=== PATIENT | female | born 1940 | race Caucasian/White ===

== ENCOUNTER → 2019-01-21 | Outpatient (CLI) | payer MEDICARE ==
[2019-01-21 14:56] LABS: HCT 41.5 % (34.0-46.0); MCH 27.9 pg (25.0-35.0); MCHC 31.3 g/dL (31.0-37.0); MCV 89.1 fL (80.0-100.0); Platelet Count 398 k/uL (150-450); RBC 4.66 m/uL (3.80-5.40); WBC 7.6 k/uL (3.8-10.6)
[2019-01-21 15:02] LABS: Appearance,Urine Clear (Clear); Bilirubin,Urine Negative (Negative); Blood,Urine Trace (Negative); Color,Urine Light Yellow; Glucose,Urine (UA) Negative (Negative); Ketones,Urine Negative (Negative); Leukocyte Esterase,Urine Large (Negative); Mucus,Urine Rare /hpf; Nitrite,Urine Negative (Negative); PH, Urine 6.5 (5.0-8.0); Protein,Urine Negative (Negative); RBC,Urine 3 /hpf (0-5); Specific Gravity,Urine 1.007 (1.001-1.035); Squamous Epithelial Cell,Urine 2 /hpf (0-4); Urobilinogen,Urine <2.0 mg/dL (<2.0); WBC,Urine 10 /hpf (0-5)
[2019-01-21 15:08] LABS: INR 0.9 (<1.2); Partial Thromboplastin Time 22.3 sec (22.0-30.0); Prothrombin Time 9.5 sec (9.0-12.0)
[2019-01-21 15:11] LABS: ALT 29 U/L (9-52); AST 27 U/L (14-36); Albumin 3.9 g/dL (3.5-5.0); Alkaline Phosphatase 82 U/L (38-126); Anion Gap 8 mmol/L; Blood Urea Nitrogen 18 mg/dL (7-17); Calcium 9.9 mg/dL (8.4-10.2); Carbon Dioxide 29 mmol/L (22-30); Chloride 102 mmol/L (98-107); Glucose 82 mg/dL (74-99); Magnesium 1.7 mg/dL (1.6-2.3); Sodium 139 mmol/L (137-145); Total Bilirubin 0.5 mg/dL (0.2-1.3); Total Protein 6.4 g/dL (6.3-8.2)
== END | disposition home or self-care (01) ==
LOC: LABPAT 13:58
PROVIDERS: ATTEND Orthopaedic Surgery Sports Medicine
DX: Z01.812 Encounter for preprocedural laboratory examination (principal); Z79.01 Long term (current) use of anticoagulants
CPT/HCPCS: 80053; 81001; 83735; 85027; 85610; 85730; 87070

== ENCOUNTER 2019-02-17 11:58 | Inpatient (IN) | payer MEDICARE ==
[2019-02-08 09:58] VITALS: BMI 25.2
[~2019-02-17 11:58] MED LIST: ACETAMINOPHEN TAB 500 MG TAB PO ONE; DEXAMETHASONE SOD PHOSPHATE 10 MG/ML 1 ML VIAL IV ONE; HYDROmorphone 0.5 MG/0.5 ML SYRINGE IVP PRN; LIDOCAINE 1% 20 ML VIAL (10MG/ML) FOR IV START INTRADERMA PRN; MELOXICAM 7.5 MG TAB PO ONE; ONDANSETRON 4 MG/2 ML VIAL IVP ONE; ROPIVACAINE 246.25 MG, EPINEPHrine 0.5 MG, KETOROLAC 30 MG, cloNIDine HCL/PF 80 MCG, WA... MISCELLANE ONE; SCOPOLAMINE 1.5MG/72HR PATCH TRANSDERM ONE; TRANEXAMIC ACID 1,000 MG in SODIUM CHLORIDE 0.9% 100 ML IVPB ONE; ceFAZolin IN SWFI 2 GM/20 ML SYRINGE IVP ONE
[2019-02-17] MEDS: LACTATED RINGERS 1,000 ML IV SCH ×2 (13:05→15:45)
[2019-02-17] MEDS ORDERED: BISACODYL 10 MG SUPP RECTAL PRN (14:36)
[2019-02-17] MEDS ORDERED: ACETAMINOPHEN TAB 325 MG TAB PO PRN (14:36)
[2019-02-17] MEDS ORDERED: HYDROcodone/APAP 5-325MG 1 EACH TAB PO PRN (14:36)
[2019-02-17] MEDS ORDERED: HYDROcodone/APAP 7.5-325MG 1 EACH TAB PO PRN (14:36)
[2019-02-17] MEDS ORDERED: NA PHOS,M-B/NA PHOS,DI-BA 133 ML ENEMA RECTAL PRN (14:36)
[2019-02-17] MEDS ORDERED: MAGNESIUM HYDROXIDE 2,400 MG/10 ML CUP PO PRN (14:36)
[2019-02-17] MEDS ORDERED: NALOXONE 0.4 MG/ML 1 ML VIAL IV PRN (14:36)
[2019-02-17] MEDS ORDERED: HYDROcodone/APAP 10-325MG 1 EACH TAB PO PRN (14:36)
[2019-02-17] MEDS ORDERED: HYDROmorphone 0.5 MG/0.5 ML SYRINGE IVP PRN ×3 (14:36)
[2019-02-17] MEDS ORDERED: TEMAZEPAM 15 MG CAP PO PRN (14:36)
[2019-02-17] MEDS ORDERED: traMADol 50 MG TAB PO PRN (14:36)
[2019-02-17] MEDS ORDERED: ONDANSETRON 4 MG/2 ML VIAL IVP PRN (14:36)
[2019-02-17] MEDS ORDERED: SODIUM CHLORIDE 0.9% 100 ML BAG ONE (14:59)
[2019-02-17] MEDS ORDERED: TRANEXAMIC ACID 1,000 MG/10 ML VIAL ONE (14:59)
[2019-02-17] MEDS ORDERED: PROPOFOL 10 MG/ML 20 ML VIAL IV ONE (14:59)
[2019-02-17] MEDS ORDERED: fentaNYL (PF) 50 MCG/ML 2 ML AMP ONE (14:59)
[2019-02-17] MEDS ORDERED: MIDAZOLAM 2 MG/2 ML VIAL ONE (14:59)
[2019-02-17] MEDS ORDERED: MORPHINE SULFATE (PF) 0.3 MG/0.3 ML SYR ONE (14:59)
--- NOTE | 2019-02-17 17:23 | XR ---
PROCEDURE: XR knee limited LT - 2V DATE AND TIME: 02/17/2019 5:13 PM CLINICAL INDICATION: PHH; Evaluation for Postop abnormality and alignment TECHNIQUE: AP and crosstable lateral COMPARISON: None FINDINGS: The TKR is in anatomic positioning and alignment. Postprocedural changes noted, but no unex pected findings. IMPRESSION: Postoperative 2 views
--- NOTE | 2019-02-17 19:34 | OP ---
OPERATIVE REPORT DATE OF PROCEDURE: 02/17/2019. SURGEON: Surjit Lobato M.D. SAW SHARPENER: Blair VARGAS. PREOPERATIVE DIAGNOSIS: Left knee osteoarthrosis. POSTOPERATIVE DIAGNOSIS: Left knee osteoarthrosis. OPERATION PERFORMED: Left total knee arthroplasty. ANESTHESIA: Spinal with sedation. ESTIMATED BLOOD LOSS: 100 mL. TOURNIQUET TIME: 46 minutes at 250 mmHg. COMPLICATIONS: None apparent. DRAINS: None. DISPOSITION: Postanesthesia care unit preop. INDICATIONS: Whit is a 78-year-old female with longstanding history of left knee pain. History and physical examination are consist with advanced left knee osteoarthrosis. She has been through significant nonoperative management up to this point. Further treatment options were discussed and she decided to go forward with left total knee arthroplasty. The risks of procedure were discussed with her in detail. These risks include, but are not limited to risk of infection, nerve damage, bleeding, pain, and a small risk of deep vein thrombosis which could lead to fatal pulmonary emboli. There is also risk of loosening of the implant which could require revision operation. The patient understands these risks. All of her questions were answered to her satisfaction. Appropriate informed consent was obtained. DESCRIPTION OF PROCEDURE: The patient identified in preoperative holding area. Surgical site was marked by both the patient and myself. She was given 2 g of Ancef IV for prophylactic purposes. She was then transferred to the operative suite. She was placed supine on the operative table. Spinal anesthetic was then administered and dosed per the anesthesia without apparent complication. Examination under anesthesia was then performed. The patient has 2-3 degrees shy of full extension. She had 100 degrees of flexion. The medial collateral ligament, lateral collateral ligament and posterior cruciate ligaments were stable. Tourniquet was then placed high on the left upper thigh well-padded in preparation for surgery. The patient's left lower extremity was then prepped and draped in usual sterile fashion. Standard surgical pause undertaken to ensure that we were operating on the correct site and that appropriate preop antibiotics were given. All staff in room were in agreement and we proceeded. The outlines of the patella were then marked with a surgical pen. A planned 10-12 cm vertical incision centered over the patella was marked with a surgical pen. The leg was then exsanguinated with an Esmarch dressing. The knee was then flexed and tourniquet was inflated to 250 mmHg. The total tourniquet time for the procedure was 46 minutes. Incision was then made with a 10 blade scalpel. Dissection carried down sharply overlying fascia. Great care was taken to minimize the skin flaps. The knee was then exposed using a standard medial parapatellar approach. A small cuff of quadriceps tendon was then left for suturing. She was in a bit of varus preoperatively. A standard medial release was then made. Superficial medial collateral ligament was dissected off the bone around the posterior aspect of the proximal tibia. The medial meniscus was then excised as well. The lateral meniscus was also released anteriorly. The leg was then externally rotated. The patella was everted. The knee was flexed. The retractors then placed to protect the collateral ligaments. I then proceeded to remove the infrapatellar fat pad. This was excised sharply tangentially with fibers of the patellar tendon. I then proceeded to remove peripheral osteophytes. This was done with a rongeur. I then proceeded with the distal femoral resection. She did have near full extension. A planned 9 mm resection was then done. The femoral canal was then entered in the midline of the femur approximately 10 mm anterior to the origin of the posterior cruciate ligament. The carlos was then advanced down the center of the femur and placed intramedullary. Based on the preoperative radiographs, the angle between the anatomic and mechanical axis of the femur was approximately 4-5 degrees. The valgus angle of the distal femoral cutting guide was then set at 4 degrees for the left knee. The distal femoral cutting guide was then advanced over the intramedullary carlos. This was seated firmly against the femur. I then as mentioned planned to take 9 mm off the distal femur. The cutting block was then secured onto the femur with pins. The jig was then removed. The distal femoral cut was made through the slot of the block. The pins were then removed. The distal femoral cutting block was removed. The accuracy of the distal femoral cuts was checked with 2 flat bars. I then proceeded with femoral sizing. Posterior referencing sizing guide was held firmly against the resected distal surface of the femur. The posterior condyles were resting on the posterior plane of the guide. The sizing size was then placed onto the anterior femur. The size measured as a size 7 narrow. I then assessed for femoral rotation. The plan was for 3 degrees of external rotation. Three degrees of external rotation was placed onto the jig. These holes were then marked. I then confirmed the rotation by 3 separate methods. This was done using epicondylar axis as well as Whitesides line and posterior referencing. It was deemed that the external rotation was proper. I then went forward with placing the femoral cutting block. This was placed over the previously placed pin holes. The Jaiden wing was then placed on the anterior slots to ensure that we would not notch the anterior femur with the anterior femoral cut. I then proceed with the anterior femoral cut. This was flush with the anterior cortex of the femur. The posterior cuts were then made followed by the anterior chamfer cut, then the posterior chamfer cut. The cutting block was then removed. Throughout the resection, the collateral ligaments were protected with retractors. I then placed a trial size 7 femur. It was slightly wide mediolateral with narrow was fit very nicely. It fit flush with the distal end of the femur. The drill holes were then made. I then proceed with a tibial cut. I planned for cruciate retaining knee. The guide was set, was placed and set for varus valgus and for slope. The height was set for approximate 2 mm resection from the medial tibial plateau which was the lower side. I was happy with the alignment and the amount of resection. The cutting block was then pinned to the proximal tibia. The alignment carlos was removed. The proximal tibia was resected with a reciprocating saw. Again this was done with retractors protecting the collateral ligaments as well as the posterior cruciate ligament. I then proceeded to evaluate the flexion extension gaps. A 10 mm block was then placed. The flexion-extension gaps were equal. I then proceed with the resection of posterior osteophytes. Very minimal posterior osteophytes. This was done using a curved osteotome. This resected the posterior osteophytes and posterior capsule stripping was also done off the posterior aspect of the femur at this time. The osteophytes were then removed. I then proceed to resection of patella. The thickness of patella was measured using the caliper. The thickness was 22 mm. The thickness of the anticipated patellar dome was taken into account. Resection was then performed and confirmed to be equal in 4 quadrants using a caliper. Approximately 14 mm of bone remained after resection. 29 x 8 mm standard patellar trial was then placed. The holes were drilled. The trial was then placed. I then proceeded sizing the tibial plate for size E tibial plate fit very nicely. I then placed the trial femur, the tibial tray and patellar button. A 10 mm trial tibial insert was also placed. The components fit very nicely. She had full extension and flexion. The extension and flexion gaps were equal and stable to both varus and valgus stress. The patella tracked appropriately. The tibial tray rotation was marked with a Bovie. This was externally rotated properly. I then proceeded with tibial preparation. First drilled the femoral holes, removed femoral component. The tibial tray was then set for proper external rotation as well as mediolateral placement onto the tibia. It was then pinned into place. I then proceeded with punching the keel. I then decided to proceed with cementing of all of our components. The knee was thoroughly irrigated with sterile saline solution via pulse lavage. The lateral geniculate artery was identified and cauterized. All blood was removed from the bone of the tibia femur and patella with pulse lavage. I then proceeded with cementing. Two packs of antibiotic bone cement were prepared on the back table by the surgical scheduler. I then proceed with cementing the tibia first. Cement was impacted into the keel as well as deeply seated in the bone. A second coat of cement was then placed. The tibia was then impacted into place. Excess cement was removed with Deuce's and Joker's. I then proceed with cementing the femoral component. The femoral component was also cemented using standard technique. Excess cement was removed. A 10 mm trial insert was then placed into the knee. It was brought into full extension with a constant axial load placed until the cement had hardened. The patellar component was then cemented. This was held firmly with a compressive device until the cement had dried. When the cement had dried, the knee was taken out of extension. All excess cement was removed from around the prosthesis. I then trialed the knee with a 10 mm insert. Flexion extension gaps were appropriate. The knee was stable. It came into full extension. I decided to go forward with the 10 mm cross-linked cruciate-retaining tibial insert. Polyethylene was then placed on the tibial tray and locked into place. The knee was then reduced. The knee was again further irrigated with sterile saline solution with antibiotic added. The tourniquet was then deflated. Total tourniquet time for the procedure was 46 minutes at 250 mmHg. Final components were Juli Persona size 7 narrow cruciate-retaining femoral component, size E tibial tray, a 10 mm medial congruent cruciate-retaining polyethylene insert and a 29 x 8 mm patella. I then proceeded with closure. Again, the knee was thoroughly irrigated. The quadriceps tendon and the medial retinaculum were reapproximated with #2 Ethibond suture. The extensor mechanism was then closed with a running #2 Quill suture. Subcutaneous tissues were then closed with 2-0 Vicryl interrupted suture. The skin was closed with a running 3-0 Quill suture. Dermabond was applied to the incision. Sterile compressive dressings were applied. All sponge and needle counts were deemed correct prior to closure. The patient tolerated procedure without apparent complication. She was transferred to recovery room in stable condition. MMODL / IJN: [id number] /
[2019-02-17] MEDS ORDERED: SENNOSIDES-DOCUSATE SODIUM 1 EACH TAB PO SCH (21:00)
[2019-02-17] MEDS ORDERED: MELATONIN 5 MG TABLET PO PRN (21:22)
[2019-02-17] MEDS ORDERED: FLUoxetine HCL 20 MG CAP PO SCH (21:30)
[2019-02-17] MEDS: ASPIRIN 325 MG TAB PO SCH (21:59)
[2019-02-17] MEDS: ceFAZolin IN SWFI 2 GM/20 ML SYRINGE IVP SCH (23:41)
[2019-02-18] MEDS: LACTATED RINGERS 1,000 ML IV SCH ×2 (05:43→07:09)
[2019-02-18 06:13] LABS: Basophils % (A) 0 %; Eosinophils % (A) 0 %; HCT 36.6 % (34.0-46.0); HGB 11.7 gm/dL (11.4-16.0); Lymphocytes # (A) 1.4 k/uL (1.0-4.8); Lymphocytes % (A) 12 %; MCH 28.7 pg (25.0-35.0); MCHC 31.9 g/dL (31.0-37.0); MCV 89.9 fL (80.0-100.0); Mean Platelet Volume 6.4; Monocytes # (A) 0.5 k/uL (0-1.0); Monocytes % (A) 4 %; Neutrophils # (A) 9.5 k/uL (1.3-7.7); Neutrophils % (A) 83 %; Platelet Count 418 k/uL (150-450); RBC 4.07 m/uL (3.80-5.40); RDW 13.9 % (11.5-15.5); WBC 11.5 k/uL (3.8-10.6)
[2019-02-18 08:01] VITALS: TEMP 98.4
[2019-02-18] MEDS: ceFAZolin IN SWFI 2 GM/20 ML SYRINGE IVP SCH (08:35)
[2019-02-18] MEDS: ASPIRIN 325 MG TAB PO SCH (08:36)
[2019-02-18] MEDS ORDERED: EZETIMIBE 10 MG TAB PO SCH (09:00)
[2019-02-18] MEDS ORDERED: buPROPion XL 150 MG TAB.ER.24H PO SCH (09:00)
[2019-02-18] MEDS ORDERED: amLODIPine 5 MG TAB PO SCH (09:00)
[2019-02-18] MEDS ORDERED: SPIRONOLACTONE 25 MG TAB PO SCH (09:00)
[2019-02-18 09:15] LABS: Albumin 3.6 g/dL (3.5-5.0); Calcium 9.2 mg/dL (8.4-10.2); Potassium 5.1 mmol/L (3.5-5.1); Total Bilirubin 0.4 mg/dL (0.2-1.3); Total Protein 5.8 g/dL (6.3-8.2)
[2019-02-18 10:45] LABS: Appearance,Urine Clear (Clear); Bilirubin,Urine Negative (Negative); Blood,Urine Negative (Negative); Color,Urine Colorless; Glucose,Urine (UA) Negative (Negative); Ketones,Urine Negative (Negative); Leukocyte Esterase,Urine Negative (Negative); Nitrite,Urine Negative (Negative); PH, Urine 5.5 (5.0-8.0); Protein,Urine Negative (Negative); Specific Gravity,Urine 1.005 (1.001-1.035); Urobilinogen,Urine <2.0 mg/dL (<2.0)
--- NOTE | 2019-02-18 11:58 | P.DS ---
Providers Date of admission: 02/17/19 12:24 Expected date of discharge: 02/18/19 Attending physician: Surjit Lobato Consults: 02/17/19 14:36 Consult Physician Routine Consulting Provider: Aura Gramajo Consult Reason/Comments: post op medical management Do you want consulting provider notified?: Yes Primary care physician: Myrna Weber - Discharge Diagnosis(es) (1) Status post total knee replacement Patient was admitted to the OR on 02/17/2019 to undergo a left total knee arthroplasty. She had failed conservative measures as an outpatient and desired to proceed with elective surgery after given informed consent. She underwent the above procedure which she tolerated well without complication. Postoperative hospital course has remained without complication. On day of discharge she is afebrile, vital signs stable, labs within acceptable ranges, tolerating by mouth meds and diet, voiding without difficulty, positive flatus, denies abdominal pain or calf pain, pain is controlled on oral pain medication and has no new complaints. Wound is benign, neurovascular status is intact, calf is soft and nontender, abdomen soft and nontender. Review of systems is negative for numbness, tingling, fever, chills, chest pain, shortness breath, nausea, vomiting, dizziness, headaches, slurred speech or other Current Visit: Yes Status: Acute (2) Osteoarthritis of knee Current Visit: Yes Status: Acute Procedures: Left TKA Patient Condition at Discharge: Good Plan - Discharge Summary Discharge Rx Participant: Yes New Discharge Prescriptions: New Aspirin 325 mg PO BID #60 tab Docusate [Colace] 100 mg PO BID #60 capsule HYDROcodone/APAP 7.5-325MG [[place] 7.5-325] 1 - 2 each PO Q6HR PRN #56 tab PRN Reason: Pain No Action amLODIPine [Norvasc] 5 mg PO DAILY Ezetimibe [Zetia] 10 mg PO DAILY buPROPion HCL [Wellbutrin XL] 150 mg PO DAILY FLUoxetine HCL [PROzac] 20 mg PO HS Aspirin 81 mg PO DAILY Spironolactone [Aldactone] 25 mg PO DAILY Cyanocobalamin (Vitamin B-12) [Vitamin B-12] 1,000 mcg PO Q4D Potassium 198 mg PO Q3D Cholecalciferol [Vitamin D3] 5,000 unit PO Q4D Magnesium Citrate 250 mg PO Q4D Sulfamethox-Tmp 800-160Mg [Bactrim DS 800-160 mg] 1 tab PO Q12HR Acetaminophen/Diphenhydramine [Tylenol PM Extra Strength] 1 tab PO HS Discharge Medication List Aspirin 81 mg PO DAILY 02/08/19 [History] Cholecalciferol [Vitamin D3] 5,000 unit PO Q4D 02/08/19 [History] Cyanocobalamin (Vitamin B-12) [Vitamin B-12] 1,000 mcg PO Q4D 02/08/19 [History] Ezetimibe [Zetia] 10 mg PO DAILY 02/08/19 [History] FLUoxetine HCL [PROzac] 20 mg PO HS 02/08/19 [History] Magnesium Citrate 250 mg PO Q4D 02/08/19 [History] Potassium 198 mg PO Q3D 02/08/19 [History] Spironolactone [Aldactone] 25 mg PO DAILY 02/08/19 [History] amLODIPine [Norvasc] 5 mg PO DAILY 02/08/19 [History] buPROPion HCL [Wellbutrin XL] 150 mg PO DAILY 02/08/19 [History] Sulfamethox-Tmp 800-160Mg [Bactrim DS 800-160 mg] 1 tab PO Q12HR 02/16/19 [History] Acetaminophen/Diphenhydramine [Tylenol PM Extra Strength] 1 tab PO HS 02/17/19 [History] Aspirin 325 mg PO BID #60 tab 02/18/19 [Rx] Docusate [Colace] 100 mg PO BID #60 capsule 02/18/19 [Rx] HYDROcodone/APAP 7.5-325MG [[place] 7.5-325] 1 - 2 each PO Q6HR PRN #56 tab 02/18/19 [Rx] Follow up Appointment(s)/Referral(s): [facility], [NON-STAFF] - Surjit Lobato MD [STAFF PHYSICIAN] - 1 Week Activity/Diet/Wound Care/Special Instructions: Keep wound clean and dry Take meds as directed Follow-up with Dr. Lobato in office Weight bear as tolerated May shower in 3 days if no bleeding Discharge Disposition: HOME WITH HOME HEALTH SERVICES
[2019-02-18] MEDS ORDERED: MULTIVITAMINS, THERA 1 EACH TAB PO SCH (12:00)
[2019-02-18 13:04] VITALS: BP 132/65; PULSE 89; RESP 14
--- NOTE | 2019-02-18 13:20 | P.CONS ---
History of Present Illness - Reason for Consult Consult date: 02/18/19 Medical management Requesting physician: Surjit Lobato - History of Present Illness This is a 78-year-old female patient who presented for an elective right left knee arthroplasty with Dr. Lobato for left knee osteoarthritis. Hyperlipidemia, hypertension, osteoarthritis, anxiety and depression and PTSD. Patient also getting treated for UTI prior to admission. Patient reports that she still has proximally 3 days left on Bactrim. Patient is currently postop day 1. Patient is resting comfortably in bed. Patient reports minimal pain. UA was negative but patient still having mildly elevated white count of 11.2. Patient to finish up the antibiotic. Patient denies chest pain or shortness of breath. Patient denies nausea vomiting or diarrhea. Patient denies any urinary burning or frequency. Review of Systems Please refer to HPI otherwise unremarkable Past Medical History Past Medical History: Hyperlipidemia, Hypertension, Osteoarthritis (OA) Additional Past Medical History / Comment(s): INTERSTITIAL CYSTITIS , History of Any Multi-Drug Resistant Organisms: None Reported Past Surgical History: Tonsillectomy, Tubal Ligation Additional Past Surgical History / Comment(s): PARTIAL REMOVAL OF A OVARY, CATARACT BILATERAL WITH IMPLANTS Additional Past Anesthesia/Blood Transfusion Reaction / Comm: DAUGHTER - PONV Past Psychological History: Anxiety, Depression, PTSD Additional Psychological History / Comment(s): PANIC ATTACK Smoking Status: Former smoker Past Alcohol Use History: Occasional Additional Past Alcohol Use History / Comment(s): STARTED SMOKING AT AGE 20 QUIT SMOKING AT AGE 57 SMOKED 1 PPD Past Drug Use History: None Reported - Past Family History Mother Family Medical History: Cancer Additional Family Medical History / Comment(s): BREAST CANCER, LUNG CANCER Medications and Allergies Home Medications Medication Instructions Recorded Confirmed Type Cholecalciferol [Vitamin D3] 5,000 unit PO Q4D 02/08/19 02/17/19 History Cyanocobalamin (Vitamin B-12) 1,000 mcg PO Q4D 02/08/19 02/17/19 History [Vitamin B-12] Ezetimibe [Zetia] 10 mg PO DAILY 02/08/19 02/17/19 History FLUoxetine HCL [PROzac] 20 mg PO HS 02/08/19 02/17/19 History Magnesium Citrate 250 mg PO Q4D 02/08/19 02/17/19 History Potassium 198 mg PO Q3D 02/08/19 02/17/19 History Spironolactone [Aldactone] 25 mg PO DAILY 02/08/19 02/17/19 History amLODIPine [Norvasc] 5 mg PO DAILY 02/08/19 02/17/19 History buPROPion HCL [Wellbutrin XL] 150 mg PO DAILY 02/08/19 02/17/19 History Sulfamethox-Tmp 800-160Mg [Bactrim 1 tab PO Q12HR 02/16/19 02/17/19 History DS 800-160 mg] Acetaminophen/Diphenhydramine 1 tab PO HS 02/17/19 02/17/19 History [Tylenol PM Extra Strength] Aspirin 325 mg PO BID #60 tab 02/18/19 Rx Docusate [Colace] 100 mg PO BID #60 capsule 02/18/19 Rx HYDROcodone/APAP 7.5-325MG [[place] 1 - 2 each PO Q6HR PRN #56 tab 02/18/19 Rx 7.5-325] Allergies Allergy/AdvReac Type Severity Reaction Status Date / Time amoxicillin Allergy Nausea & Verified 02/17/19 18:20 Vomiting [place] And Derivatives Allergy "BLADDER Verified 02/17/19 18:20 [[place]] PAIN" milk Allergy Abdominal Verified 02/17/19 18:20 Pain, NAUSEA, ABDOMINAL BLOATING Gvncsxk-Wqq-Ger Reductase Allergy MUSCLE PAIN Verified 02/17/19 18:20 Inhibitor Physical Exam Vitals: Vital Signs Temp Pulse Pulse Pulse Resp BP Pulse Ox 02/18/19 13:03 89 14 132/65 93 L 02/18/19 07:00 98.4 F 82 16 87/42 90 L 02/18/19 03:24 16 02/18/19 01:30 94 L 02/18/19 01:06 97.6 F 98 18 106/65 90 L 02/17/19 23:40 18 02/17/19 20:25 96 95 02/17/19 20:15 106 H 102/58 87 L 02/17/19 20:00 107 H 124/61 92 L 02/17/19 19:45 89 91 L 02/17/19 19:30 97 119/72 93 L 02/17/19 19:15 102 H 112/61 94 L 02/17/19 19:00 98 124/66 94 L 02/17/19 18:45 74 174/114 96 02/17/19 18:30 98 118/55 94 L 02/17/19 18:15 97.7 F 94 12 120/68 94 L 02/17/19 17:30 88 16 116/55 99 02/17/19 17:15 83 16 116/57 91 L 02/17/19 17:00 74 16 120/59 94 L 02/17/19 16:54 98.0 F 84 16 118/73 98 Intake and Output 02/17/19 02/18/19 02/18/19 22:59 06:59 14:59 Intake Total 1100 600 Output Total 100 251 Balance 1000 349 Intake: IV 1100 Intake, IV Titration 600 Amount Lactated Ringers 1,000 ml 600 @ 75 mls/hr IV .[id number] CHRISTINE Rx#:[id number] Output: Urine 250 Emesis 1 Estimated Blood Loss 100 Other: # Voids 1 1 Head normocephalic Neck supple Lungs clear to auscultation bilaterally no wheezing or crackles Heart regular rate and rhythm S1-S2, no rub or gallop Abdomen is soft nontender nondistended positive bowel sounds no hepatosplenomegaly Extremities no edema Neuro alert and orientated to 3 Results CBC & Chem 7: 02/18/19 05:45 02/18/19 05:45 Labs: Abnormal Lab Results - Last 24 Hours (Table) 02/18/19 02/18/19 Range/Units 05:45 05:45 WBC 11.5 H (3.8-10.6) k/uL Neutrophils # 9.5 H (1.3-7.7) k/uL Sodium 133 L (137-145) mmol/L BUN 26 H (7-17) mg/dL Total Protein 5.8 L (6.3-8.2) g/dL Assessment and Plan Assessment: 1. Status post total left knee arthroplasty with Dr. Lobato. Patient is currently postop day 1. Patient has been cleared for discharge from orthopedic services. Patient will be DC'd on aspirin for DVT prophylaxis and [place] for pain control. 2. History of essential hypertension. Patient did have low blood pressure this a.m. All home blood pressure meds were given and repeat blood pressure this afternoon 132/65. 3. Hyperlipidemia 4. History of osteoarthritis 5. History of anxiety and depression. Patient reports she's been dealing with this issue for many months. Advised patient to follow-up with her PCP for possibly starting patient on medication to help control her symptoms. Thank you for this consultation we will continue to follow patient closely throughout stay Time with Patient: Greater than 30 (Greater than 60% of the total time spent in counseling and coordination of care. I performed an examination of the patient and discussed their management with the Nurse Practitioner. I have reviewed the Nurse Practitioner's notes and agree with the documented findings and plan of care)
== END 2019-02-18 14:30 | disposition home or self-care (01) | DRG 470 ==
LOC: 2ORMAIN 12:24 → 4SSUR 16:48
PROVIDERS: ADMIT Orthopaedic Surgery Sports Medicine; ATTEND Orthopaedic Surgery Sports Medicine
PROC: 0SRD0J9 Replacement of Left Knee Joint with Synthetic Substitute, Cemented, Open Approach (ICD-10-PCS; principal; 2019-02-17 14:05)
DX: M17.12 Unilateral primary osteoarthritis, left knee (principal); E78.5 Hyperlipidemia, unspecified; F32.9 Major depressive disorder, single episode, unspecified; F41.0 Panic disorder [episodic paroxysmal anxiety]; F43.10 Post-traumatic stress disorder, unspecified; I10 Essential (primary) hypertension; Z79.82 Long term (current) use of aspirin; Z79.899 Other long term (current) drug therapy; Z87.891 Personal history of nicotine dependence; Z98.51 Tubal ligation status; Z90.721 Acquired absence of ovaries, unilateral; Z98.42 Cataract extraction status, left eye; Z98.41 Cataract extraction status, right eye; Z96.1 Presence of intraocular lens; Z87.440 Personal history of urinary (tract) infections; Z80.1 Family history of malignant neoplasm of trachea, bronchus and lung; Z80.3 Family history of malignant neoplasm of breast; Z82.49 Family history of ischemic heart disease and other diseases of the circulatory system
CPT/HCPCS: 80053; 81003; 85025; 88300

== ENCOUNTER → 2019-03-31 | Outpatient (CLI) | payer MEDICARE ==
--- NOTE | 2019-04-01 10:48 | MM ---
Reason for exam: screening (asymptomatic). Last mammogram was performed 1 year and 10 months ago. History: Patient is postmenopausal. Family history of premenopausal breast cancer in mother at age 39 and breast cancer in cousin at age 75. Benign left mammotome panel of the left breast, August 25, 2006. Left Mammotome Panel of the left breast, July 11, 2005. Took progesterone for 15 years. Physical Findings: A clinical breast exam by your physician is recommended on an annual basis and results should be correlated with mammographic findings. MG Screening Mammo w CAD Bilateral CC and MLO view(s) were taken. Prior study comparison: May 27, 2017, mammogram. April 03, 2015, mammogram. July 03, 2009, bilateral digital screening mammogram. March 04, 2008, bilateral diagnostic digital mammog. The breast tissue is heterogeneously dense. This may lower the sensitivity of mammography. Benign appearing calcifictions in the right breast. No suspicious abnormality. Left biopsy marker noted. No significant changes when compared with prior studies. ASSESSMENT: Benign, BI-RAD 2 RECOMMENDATION: Routine screening mammogram of both breasts in 1 year.
== END ==
LOC: RADMAMWWP 10:03
PROVIDERS: ATTEND Family Medicine
DX: Z12.31 Encounter for screening mammogram for malignant neoplasm of breast (principal)
CPT/HCPCS: 77067

== ENCOUNTER → 2024-03-30 | Outpatient (CLI) | payer MEDICARE ==
--- NOTE | 2024-04-12 13:32 | MM ---
Reason for Exam: Screening (asymptomatic). Last mammogram was performed 1 year(s) and 1 month(s) ago. Patient History: Menarche at age 16. First Full-Term at age 23. Postmenopausal. Progesterone for 15 years until age 66. 08/25/2006, Benign Core Biopsy on the left side. 07/11/2005, Core Biopsy on the Left side. Maternal cousin had breast cancer, age 75. Mother had breast cancer, age 39. Risk Values: Latonya 5 year model risk: 4.2%. NCI Lifetime model risk: 6.0%. Prior Study Comparison: 04/03/2015 Screening Mammogram, Unknown. 05/27/2017 Screening Mammogram, Unknown. 03/31/2019 Bilateral Screening Mammogram, [facility]. 07/17/2020 Bilateral Screening Mammogram, [facility]. 12/04/2021 Bilateral Screening Mammogram, [facility]. 02/05/2023 Bilateral Screening Mammogram, [facility]. Tissue Density: The breasts are heterogeneously dense, which may obscure small masses. Findings: Analyzed By CAD. There is no suspicious group of microcalcifications or new suspicious mass in either breast. Overall Assessment: Negative, BI-RAD 1 Management: Screening Mammogram of both breasts in 1 year. . Patient should continue monthly self-breast exams. A clinical breast exam by your physician is recommended on an annual basis. This exam should not preclude additional follow-up of suspicious palpable abnormalities. Note on Latonya scores and lifetime risk: 1. A Latonya score greater than 3% is considered moderate risk. If this is the case, consider specialist referral to assess eligibility for a risk reducing agent. 2. If overall lifetime risk for the development of breast cancer is 20% or higher, the patient may qualify for future screening with alternating mammogram and breast MRI. Electronically signed and approved by: Mihir Richardson M.D. Radiologis
== END | disposition home or self-care (01) ==
LOC: RADMAMWWP 12:58
PROVIDERS: ATTEND Family Medicine
DX: Z12.31 Encounter for screening mammogram for malignant neoplasm of breast (principal); Z80.3 Family history of malignant neoplasm of breast; Z78.0 Asymptomatic menopausal state
CPT/HCPCS: 77063; 77067

== ENCOUNTER → 2024-10-29 | Outpatient (CLI) | payer MEDICARE ==
--- NOTE | 2024-10-29 16:02 | US ---
EXAMINATION TYPE: US kidneys/renal and bladder DATE OF EXAM: 10/29/2024 COMPARISON: NONE CLINICAL INDICATION: Female, 84 years old with history of N28.1 CYST OF KIDNEY, ACQUIRED; known cyst per patient, no symptoms, frequent UTI's TECHNIQUE: Grayscale imaging of the bilateral kidneys and urinary bladder: FINDINGS: EXAM MEASUREMENTS: Right Kidney: 9.1 x 4.8 x 4.9 cm Left Kidney: 8.3 x 4.1 x 5.7 cm Right Kidney: No hydronephrosis or masses seen Left Kidney: dilated pyramids versus cysts, largest = 2.2 x 1.8 x 1.2cm Bladder: not very distended There is no evidence for hydronephrosis at this point in time. No nephrolithiasis is seen. No vick s are identified. The urinary bladder is anechoic. IMPRESSION: 1. No evidence for obstructive uropathy or renal calculus. 2. Simple appearing left parapelvic or peripelvic cyst. [facility], , 10/29/2024 4:00 PM
== END | disposition home or self-care (01) ==
LOC: RADUSWWP 15:32
PROVIDERS: ATTEND Urology
DX: N28.1 Cyst of kidney, acquired (principal)
CPT/HCPCS: 76770

== ENCOUNTER → 2025-04-27 | Outpatient (CLI) | payer MEDICARE ==
[2025-04-27 15:06] LABS: HCT 45.3 % (37.2-46.3); HGB 14.5 g/dL (12.0-15.0); MCH 29.8 pg (27.0-32.0); MCV 93.2 FL (80.0-97.0); Mean Platelet Volume 8.7 FL (9.5-12.2); NRBC Per 100 WBC 0 X 10*3/uL (0.00-0.01); Platelet Count 306 X 10*3/uL (140-440); RBC 4.86 X 10*6/uL (4.10-5.20); RDW 13.1 % (11.5-14.5); WBC 7.33 X 10*3/uL (4.50-10.00)
[2025-04-27 15:32] LABS: Erythrocyte Sedimentation Rate 10 mm/Hr (0-30)
[2025-04-27 15:42] LABS: Protein, Total 6.1 g/dL (6.2-8.2)
[2025-04-27 15:44] LABS: ALT 20 U/L (8-44); AST 25 U/L (13-35); Alkaline Phosphatase 51 U/L (41-126); Blood Urea Nitrogen 14.4 mg/dL (9.0-27.0); Calcium 9.3 mg/dL (8.7-10.3); Carbon Dioxide 27.3 mmol/L (21.6-31.8); Chloride 102 mmol/L (96-109); Creatine Kinase 36 U/L (26-186); GGT 10 U/L (0-38); LDH 201 U/L (120-246); Magnesium 1.7 mg/dL (1.5-2.4); Potassium 4.2 mmol/L (3.5-5.5); Rheumatoid Factor, Qnt <15 IU/mL (0-15); Sodium 138 mmol/L (135-145); Uric Acid 3.4 mg/dL (2.9-7.7)
[2025-04-27 17:02] LABS: Glucose 2 Hour 135 mg/dL
== END | disposition home or self-care (01) ==
LOC: LABWHC1 10:36
PROVIDERS: ATTEND Physical Medicine & Rehabilitation
DX: G60.3 Idiopathic progressive neuropathy (principal); E11.9 Type 2 diabetes mellitus without complications; R25.2 Cramp and spasm; M13.80 Other specified arthritis, unspecified site; Z79.899 Other long term (current) drug therapy
CPT/HCPCS: 36415; 80051; 82310; 82550; 82565; 82607; 82746; 82947; 82950; 82977; 83036; 83615; 83735; 84075; 84165; 84207; 84443; 84450; 84460; 84520; 84550; 85027; 85652; 86038; 86334; 86431

== ENCOUNTER → 2025-05-17 | Outpatient (CLI) | payer MEDICARE ==
--- NOTE | 2025-05-17 13:32 | MM ---
Reason for Exam: Screening (asymptomatic). Last mammogram was performed 1 year(s) and 2 month(s) ago. Patient History: Menarche at age 16. First Full-Term at age 23. Postmenopausal. Progesterone for 15 years until age 66. 08/25/2006, Benign Core Biopsy on the left side. 07/11/2005, Core Biopsy on the Left side. Maternal cousin had breast cancer, age 75. Mother had breast cancer, age 39. Risk Values: Latonya 5 year model risk: 4.1%. NCI Lifetime model risk: 5.4%. Prior Study Comparison: 12/04/2021 Bilateral Screening Mammogram, [facility]. 02/05/2023 Bilateral Screening Mammogram, [facility]. 03/30/2024 Bilateral MG 3D screening mammo w/cad, [facility]. Tissue Density: The breasts are heterogeneously dense, which may obscure small masses. Findings: Analyzed By CAD. There is no suspicious group of microcalcifications or new suspicious mass in either breast. Overall Assessment: Benign, BI-RAD 2 Management: Screening Mammogram of both breasts in 1 year. . Patient should continue monthly self-breast exams. A clinical breast exam by your physician is recommended on an annual basis. This exam should not preclude additional follow-up of suspicious palpable abnormalities. Note on Latonya scores and lifetime risk: 1. A Latonya score greater than 3% is considered moderate risk. If this is the case, consider specialist referral to assess eligibility for a risk reducing agent. 2. If overall lifetime risk for the development of breast cancer is 20% or higher, the patient may qualify for future screening with alternating mammogram and breast MRI. [facility], , 05/17/2025 1:29 PM. Electronically signed and approved by: Mihir Richardson M.D. [facility]
== END | disposition home or self-care (01) ==
LOC: RADMAMWWP 13:03
PROVIDERS: ATTEND Family Medicine
DX: Z12.31 Encounter for screening mammogram for malignant neoplasm of breast (principal); R92.333 Mammographic heterogeneous density, bilateral breasts; Z78.0 Asymptomatic menopausal state; Z80.3 Family history of malignant neoplasm of breast
CPT/HCPCS: 77063; 77067